=== PATIENT | female | born 1950 | race African-American/Black ===

== ENCOUNTER 2021-02-25 12:12 | Inpatient (IN) | payer OTHER ==
[~2021-02-25] VITALS: Ht 167.6 cm; Wt 52.0 kg
[2021-02-25] MEDS ORDERED: ASPirin 81 mg TAB PO ONE (12:30)
[2021-02-25] MEDS ORDERED: HEPARIN 1,000 UNITS/ml 1ML VIAL IV ONE (12:30)
[2021-02-25] MEDS ORDERED: MORPHINE SULFATE 4 MG/ML SYR/VIAL IV ONE (12:30)
[2021-02-25] MEDS ORDERED: ONDANSETRON HCL 4 MG/2 ML VIAL IV ONE (12:30)
[2021-02-25] MEDS ORDERED: LIDOCAINE 2%HCL (LOCAL ANESTH.) INJ 20ML MDV ONE (12:33)
[2021-02-25] MEDS ORDERED: IODIXANOL 320MG/ML 100ML BTL IV ONE (12:33)
[2021-02-25] MEDS ORDERED: fentaNYL CITRATE 100 MCG/2 ML VL ONE (13:05)
[2021-02-25] MEDS ORDERED: MIDAZOLAM HCL 1MG/1ML-2 ML VIAL ONE (13:05)
[2021-02-25] MEDS ORDERED: ATROPINE SULF 1 MG/10ml SYR ONE (13:14)
[2021-02-25] MEDS ORDERED: HEPARIN SODIUM (PORCINE) 5000 UNITS/ML 1ML VIAL ONE (13:18)
[2021-02-25 13:27] LABS: Albumin 2.5 g/dL (3.4-5.0); Calcium 8.5 mg/dL (8.5-10.1); INR 1.18 (0.9-1.15); Magnesium 1.9 mg/dL (1.6-2.6); Partial Thromboplastin Time 28.2 sec (23.0-31.2); Potassium 3.7 mmol/L (3.5-5.1)
[2021-02-25 13:32] LABS: BUN/Creatinine Ratio 19.3; Bilirubin, Total 1.1 mg/dL (0.2-1.0); Total Protein 9.3 g/dL (6.4-8.2)
[2021-02-25] MEDS ORDERED: NITROGLYCERIN 0.4 MG SL TAB SL PRN (14:00)
[2021-02-25] MEDS ORDERED: DEXTROSE (50%) 50ML SYRG IV PRN (14:00)
[2021-02-25 14:07] LABS: Basophils # (auto) 0 10 ^3/uL (0-0.2); Basophils % (auto) 0.2 % (0.0-2.0); Eosinophils # (auto) 0 10 ^3/uL (0-0.8); Lymphocytes # (auto) 0.4 10 ^3/uL (0.4-5.4); Monocytes # (auto) 0.8 10 ^3/uL (0-1.3); Neutrophils % (auto) 91.2 % (37.0-80.0)
[2021-02-25 14:09] LABS: Hematocrit 26.3 % (36.0-46.0); Hemoglobin 8.2 g/dL (12.2-16.2); Lymphocytes % (auto) 2.7 % (10.0-50.0); Mean Corpuscular Hemoglobin 26.3 pg (28.0-32.0); Mean Corpuscular Hgb Conc. 31.4 g/dL (32.0-36.0); Monocytes % (auto) 5.9 % (0.0-12.0); Neutrophils # (auto) 12.4 10 ^3/uL (1.6-8.6); Nucleated Red Blood Cells % 0.1 %; Platelet Count (auto) 287 10^3/uL (140-450); Red Blood Cells 3.13 10^6/uL (4.0-5.20); White Blood Cell 13.6 10^3/uL (4.4-10.8)
[2021-02-25 14:12] LABS: Red Cell Distribution Width 20.4 % (11.8-14.3)
[2021-02-25] MEDS ORDERED: ONDANSETRON HCL 4 MG/2 ML VIAL IV PRN (14:45)
[2021-02-25] MEDS ORDERED: ACETAMINOPHEN 500 MG TAB PO PRN (14:45)
[2021-02-25] MEDS ORDERED: MORPHINE SULF INJ 2 MG/ML SYRINGE 1ML IV PRN (15:15)
[2021-02-25] MEDS ORDERED: SODIUM CHL 0.9% 50 ML ONE (15:21)
[2021-02-25] MEDS ORDERED: ANGIOMAX 250 MG VIAL IV ONE (15:21)
[2021-02-25] MEDS: SOD CHL 0.45% 1,000 ML IV SCH (15:34)
[2021-02-25] MEDS: HYDROcodone-ACET 5/325MG TAB PO PRN (15:34)
[2021-02-25] MEDS ORDERED: NTG 0.1MG/HR TOPICAL PATCH TD ONE (16:00)
[2021-02-25] MEDS ORDERED: PANTOPRAZOLE 40 MG TAB PO ONE (16:30)
[2021-02-25] MEDS: InsuLIN REG 1unit/0.01ml Soln (100units/ml) SC SCH ×2 (17:49→22:00)
[2021-02-25] MEDS: ACCU-CHEK COMFORT CURVE STRIP VI SCH ×2 (17:51→21:59)
[2021-02-25] MEDS ORDERED: METO-169 PO (19:06)
[2021-02-25 20:00] VITALS: BP 103/74
[2021-02-25] MEDS: METOPROLOL TARTRATE 25 MG TAB PO SCH (21:59)
[2021-02-25] MEDS: ATORVASTATIN 20 MG TAB PO SCH (21:59)
[2021-02-25 22:00] VITALS: BP 103/74
[2021-02-26] VITALS (21 sets, daily range): BP systolic 81–133; BP diastolic 45–93
[2021-02-26 01:06] LABS: Alcohol, Urine < 3.0 mg/dL (0-10); Amphetamine Screen, Urine NEGATIVE (NEGATIVE); Barbiturate Scree,Urine NEGATIVE (NEGATIVE); Benzodiazephine Screen, Urine POSITIVE (NEGATIVE); Cannabinoid Screen, Urine NEGATIVE (NEGATIVE); Cocaine Screen, Urine NEGATIVE (NEGATIVE); Opiate Scree,Urine NEGATIVE (NEGATIVE); Phencyclidine Screen, Urine NEGATIVE (NEGATIVE)
[2021-02-26] MEDS: HYDROcodone-ACET 5/325MG TAB PO PRN (02:39)
[2021-02-26] MEDS: SOD CHL 0.45% 1,000 ML IV SCH (04:15)
[2021-02-26] MEDS: InsuLIN REG 1unit/0.01ml Soln (100units/ml) SC SCH ×4 (06:57→23:45)
[2021-02-26] MEDS: ACCU-CHEK COMFORT CURVE STRIP VI SCH ×4 (06:57→23:40)
[2021-02-26 07:06] LABS: Basophils # (auto) 0 10 ^3/uL (0-0.2); Eosinophils # (auto) 0 10 ^3/uL (0-0.8); Hemoglobin 8.3 g/dL (12.2-16.2)
[2021-02-26 07:09] LABS: Basophils % (auto) 0.2 % (0.0-2.0); Hematocrit 25.5 % (36.0-46.0); Lymphocytes # (auto) 0.9 10 ^3/uL (0.4-5.4); Lymphocytes % (auto) 7.5 % (10.0-50.0); Mean Corpuscular Hgb Conc. 32.7 g/dL (32.0-36.0); Mean Corpuscular Volume 82.5 fL (80.0-100.0); Neutrophils # (auto) 10.6 10 ^3/uL (1.6-8.6); Neutrophils % (auto) 84.3 % (37.0-80.0); Platelet Count (auto) 271 10^3/uL (140-450); Red Blood Cells 3.09 10^6/uL (4.0-5.20); White Blood Cell 12.6 10^3/uL (4.4-10.8)
[2021-02-26 07:11] LABS: Red Cell Distribution Width 20.3 % (11.8-14.3)
[2021-02-26] MEDS: MORPHINE SULF INJ 2 MG/ML SYRINGE 1ML IV PRN ×3 (07:20→19:47)
[2021-02-26 07:28] LABS: Potassium 3.9 mmol/L (3.5-5.1)
[2021-02-26 07:41] LABS: BUN/Creatinine Ratio 21.5; Calcium 7.8 mg/dL (8.5-10.1)
[2021-02-26] MEDS ORDERED: SODIUM CHLORIDE 0.9% 1,000 ML IV SCH (09:30)
[2021-02-26] MEDS ORDERED: CLOPIDOGREL BISULFATE 75 MG TAB PO SCH (10:00)
[2021-02-26] MEDS ORDERED: ASPirin 81 mg TAB PO SCH (10:00)
[2021-02-26] MEDS ORDERED: NTG 0.1MG/HR TOPICAL PATCH TD SCH (10:00)
[2021-02-26] MEDS: METOPROLOL TARTRATE 25 MG TAB PO SCH ×2 (10:00→22:00)
[2021-02-26] MEDS ORDERED: PANTOPRAZOLE 40 MG TAB PO SCH (10:00)
[2021-02-26 11:39] LABS: % Iron Saturation 7.5 % (15-50)
[2021-02-26] MEDS ORDERED: HYDROmorphone HCL 2 MG/ML VL IV ONE (17:15)
[2021-02-26] MEDS ORDERED: HEPARIN SODIUM (PORCINE) 5000 UNITS/ML 1ML VIAL IV ONE (18:00)
[2021-02-26] MEDS ORDERED: NITROGLYCERIN 50MG/250ML 250 ML IV SCH (18:00)
[2021-02-26] MEDS ORDERED: HEPARIN DRIP/D5W 100UNITS/ML 250 ML IV SCH (18:00)
[2021-02-26] MEDS ORDERED: NOREPINEPHRINE 8 MG/250ML KIT 250 ML IV SCH (20:15)
[2021-02-26] MEDS ORDERED: NOREPINEPHRINE 8 MG/250ML KIT 250 ML IV ONE (20:16)
[2021-02-26] MEDS: ATORVASTATIN 20 MG TAB PO SCH (23:40)
[2021-02-27] VITALS (11 sets, daily range): BP systolic 88–99; BP diastolic 54–62
[2021-02-27 01:18] LABS: INR 1.08 (0.9-1.15); Partial Thromboplastin Time 37.6 sec (23.0-31.2)
[2021-02-27] MEDS ORDERED: HEPARIN SODIUM (PORCINE) 5000 UNITS/ML 1ML VIAL ONE (01:30)
[2021-02-27] MEDS ORDERED: MIDAZOLAM DRIP 50 mg/50mL 50 ML IV ONE (02:53)
[2021-02-27] MEDS ORDERED: SODIUM BICARBONATE 8.4% INJ 50ML SYRINGE IV ONE (03:05)
[2021-02-27] MEDS ORDERED: ATROPINE SULF 1 MG/10ml SYR IV ONE (03:05)
[2021-02-27] MEDS ORDERED: EPINEPHrine HCL 1 MG/10 ML SYRG IV ONE (03:05)
[2021-02-27] MEDS ORDERED: MAGNESIUM SULF 50% 40 MEQ/10 ML VL IV ONE (03:05)
[2021-02-27] MEDS ORDERED: AMIODARONE HCL (50 MG/ ML) 3 ML VIAL IV ONE (03:05)
[2021-02-27] MEDS ORDERED: LIDOCAINE HCL 100 MG/5ML (2%) SYRG INJ IV ONE (03:05)
== END 2021-02-27 03:06 | DRG 174 ==
LOC: ER 12:12 → CATH 1 12:42 → TELE 12:43 → TELE-WESTW 18:13 → ICU WEST 02-26 18:20
PROVIDERS: ADMIT Specialist; ATTEND Internal Medicine
PROC: 02703ZZ Dilation of Coronary Artery, One Artery, Percutaneous Approach (ICD-10-PCS; principal; 2021-02-25)
PROC: 4A023N7 Measurement of Cardiac Sampling and Pressure, Left Heart, Percutaneous Approach (ICD-10-PCS; 2021-02-25)
PROC: B211YZZ Fluoroscopy of Multiple Coronary Arteries using Other Contrast (ICD-10-PCS; 2021-02-25)
PROC: B41FYZZ Fluoroscopy of Right Lower Extremity Arteries using Other Contrast (ICD-10-PCS; 2021-02-25)
PROC: 06HN33Z Insertion of Infusion Device into Left Femoral Vein, Percutaneous Approach (ICD-10-PCS; 2021-02-25)
DX: I21.3 ST elevation (STEMI) myocardial infarction of unspecified site (principal); I50.31 Acute diastolic (congestive) heart failure; N17.9 Acute kidney failure, unspecified; E44.0 Moderate protein-calorie malnutrition; E11.9 Type 2 diabetes mellitus without complications; D64.9 Anemia, unspecified; D72.829 Elevated white blood cell count, unspecified; N93.9 Abnormal uterine and vaginal bleeding, unspecified; I11.0 Hypertensive heart disease with heart failure; I25.5 Ischemic cardiomyopathy; Z20.822 Contact with and (suspected) exposure to COVID-19; Z87.891 Personal history of nicotine dependence; Z88.0 Allergy status to penicillin
CPT/HCPCS: 36415; 71045; 76775; 80048; 80053; 80061; 80307; 82962; 83540; 83550; 83735; 84484; 85025; 85610; 85730; 87426; 92920; 93005; 93306; 93458; 96361; 96375; 99152; 99153; 99291; A4565; G0378; J2250; J2405; Q9967